=== PATIENT | male | born 1970 | race Caucasian/White ===

== ENCOUNTER 2021-06-22 07:31 | Day surgery (SDC) | payer OTHER ==
[~2021-06-22] VITALS: Ht 190.5 cm; Wt 87.7 kg
[~2021-06-22 07:31] MED LIST: CONRAY-60 60% 50ML VIAL (Q9961) As Ordered ONE
[2021-06-22] MEDS ORDERED: dexameTHASONE 4 MG/ML 1ML VIAL (J1100 PER 1MG) As Ordered ONE (08:17)
[2021-06-22] MEDS ORDERED: propofoL 200 MG/20 ML VIAL As Ordered ONE (08:17)
[2021-06-22] MEDS ORDERED: fentaNYL 100 MCG/2 ML INJECTION As Ordered ONE ×2 (08:17→10:32)
[2021-06-22] MEDS ORDERED: ONDANSETRON 4MG/2ML VIAL As Ordered ONE (08:17)
[2021-06-22] MEDS ORDERED: LIDOCAINE 2% 100MG/5ML SDV (FOR ANES.) As Ordered ONE (08:17)
[2021-06-22] MEDS ORDERED: MIDAZOLAM INJ 2MG/2ML VIAL (J2250 PER 1MG) As Ordered ONE (08:17)
[2021-06-22] MEDS ORDERED: ceFAZolin 2 GM/D5W 50 ML IV BAG (J0690 PER 500MG) As Ordered ONE (09:06)
[2021-06-22] MEDS ORDERED: ceFAZolin SOD 2 GM in IV 1 EA IV ONE (09:10)
[2021-06-22] MEDS ORDERED: LIDOCAINE 5% OINT 30GM TUBE As Ordered ONE (09:16)
[2021-06-22] MEDS ORDERED: ACETAMINOPHEN 1000MG 100ML IV BTL (OFIRMEV) (J0131 PER 10MG) As Ordered ONE ×2 (09:38→11:48)
[2021-06-22] MEDS ORDERED: ESMOLOL INJ 100MG/10ML VIAL As Ordered ONE (09:46)
[2021-06-22] MEDS ORDERED: FLOM0.4C39 PO (10:55)
[2021-06-22] MEDS ORDERED: LR 1,000 ML IV SCH (11:25)
[2021-06-22] MEDS ORDERED: ONDANSETRON 4MG/2ML VIAL IV PRN (11:25)
[2021-06-22] MEDS ORDERED: PERCOCET 5MG/325MG TAB PO PRN ×2 (11:25→11:30)
[2021-06-22] MEDS ORDERED: fentaNYL 100 MCG/2 ML INJECTION IV PRN (11:25)
[2021-06-22] MEDS ORDERED: SUGAMMADEX SODIUM 500 MG/5 ML VIAL (BRIDION) As Ordered ONE (11:48)
[2021-06-22 12:08] VITALS: BP 111/71
[2021-06-27 16:08] LABS: CA Oxalate Dihy 50 % (.); Ca Ox Monohydrate 20 % (.); Size 4x3 mm (.)
== END 2021-06-22 12:05 | disposition home or self-care (01) ==
LOC: M SDC 07:31
PROVIDERS: ATTEND Urology
DX: N20.0 Calculus of kidney (principal); N13.39 Other hydronephrosis; J44.9 Chronic obstructive pulmonary disease, unspecified; Z79.51 Long term (current) use of inhaled steroids
CPT/HCPCS: 52356; 74420; 82365; C1769; C1894; C2617; J0131; J0690; J1100; J2250; J2405; J3010; Q9961

== ENCOUNTER → 2022-07-23 | Outpatient (REF) ==
[~2022-07-23] MED LIST changes: -CONRAY-60 60% 50ML VIAL (Q9961) As Ordered ONE; +FLOM0.4C39 PO
== END ==
LOC: M PLAIMG 11:28
PROVIDERS: ATTEND Internal Medicine
DX: Z00.00 Encounter for general adult medical examination without abnormal findings (principal)